=== PATIENT | male | born 1975 | race Caucasian/White ===

== ENCOUNTER 2017-11-03 17:53 | Emergency (ER) | payer OTHER ==
[2017-11-03] MEDS: METHYLPREDNISOLONE 125 MG INJ IM (20:26)
[2017-11-03] MEDS: LEVALBUTEROL (NEB) 1.25 MG/0.5 ML AMP HHN (21:04)
== END 2017-11-04 00:16 | disposition home or self-care (01) ==
LOC: FTE 11-04 00:16
DX: J20.9 Acute bronchitis, unspecified (principal); J45.901 Unspecified asthma with (acute) exacerbation; E11.9 Type 2 diabetes mellitus without complications; Z87.891 Personal history of nicotine dependence
CPT/HCPCS: 71046; 94664; 96372; 99284-25